=== PATIENT | male | born 1990 | race Caucasian/White ===

== ENCOUNTER 2017-06-21 22:37 | Emergency (ER) | payer SELFPAY ==
[~2017-06-21] VITALS: Ht 182.9 cm; Wt 90.7 kg
[2017-06-21 22:39] VITALS: BP 142/80
--- NOTE | 2017-06-21 22:44 | NUR ---
PT BIB [facility], PREBOOK. TAKEN TO OVERFLOW
[2017-06-21 23:59] VITALS: BP 135/74
--- NOTE | 2017-06-21 23:59 | NUR ---
Patient discharged with v/s stable. Written and verbal after care instructions given and explained. Patient verbalized understanding. Police with in custody. All questions addressed prior to discharge. Advised to follow up with [facility]D.
== END 2017-06-21 23:59 ==
LOC: MED 22:37
DX: Z02.89 Encounter for other administrative examinations (principal); R07.89 Other chest pain; V47.5XXA Car driver injured in collision with fixed or stationary object in traffic accident, initial encounter; Y93.89 Activity, other specified; Y92.488 Other paved roadways as the place of occurrence of the external cause; Y99.8 Other external cause status
CPT/HCPCS: 99283